=== PATIENT | male | born 1965 | race Caucasian/White ===

== ENCOUNTER 2022-09-11 08:05 | Day surgery (SDC) | payer MEDICAID, OTHER ==
[~2022-09-11 08:05] MED LIST: SODIUM CHLORIDE 0.9% 1,000 ML IV ONE; SODIUM CHLORIDE 0.9% 1,000 ML ONE
[2022-09-11 09:39] LABS: COVID AG,FIA SOURCE NASAL SWAB
[2022-09-11] MEDS ORDERED: PROPOFOL 1% 20 ML VIAL IVP ONE (12:00)
[2022-09-11] MEDS ORDERED: LIDOCAINE/PF 2% 5 ML VIAL IM ONE (12:00)
[2022-09-11] MEDS ORDERED: OXYGEN THERAPY IH SCH (20:00)
== END 2022-09-11 14:39 | disposition home or self-care (01) ==
LOC: SURGERY 08:05
PROVIDERS: ATTEND Specialist
DX: K29.50 Unspecified chronic gastritis without bleeding (principal); Z87.11 Personal history of peptic ulcer disease; Z20.822 Contact with and (suspected) exposure to COVID-19; E66.3 Overweight; Z79.899 Other long term (current) drug therapy; Z98.890 Other specified postprocedural states
CPT/HCPCS: 43239; 87426; C9803; C1769; J2704; J3490; J7030